=== PATIENT | male | born 1970 | race Caucasian/White ===

== ENCOUNTER 2018-02-24 20:29 | Inpatient (IN) | payer OTHER ==
[~2018-02-24] VITALS: Ht 182.9 cm; Wt 128.8 kg
[2018-02-24 20:58] VITALS: Ht 182.9 cm; Wt 128.8 kg
[2018-02-24 22:08] LABS: BASOPHIL % 0.4 % (0-2); PLATELET COUNT 204 x10^3mcL (130-400); RED CELL DISTRIBUTION WIDTH 13.7 % (11.5-14.5)
[2018-02-24 22:14] LABS: CALCIUM 8.8 mg/dL (8.5-10.1); CARBON DIOXIDE 26.6 mmol/L (21-32); CHLORIDE SERUM 99 mmol/L (98-107); CREATININE SERUM 1.2 mg/dL (0.7-1.3); GFR1 > 60 mL/min; GLUCOSE SERUM 109 mg/dL (74-106); POTASSIUM SERUM 3.2 mmol/L (3.5-5.1); SODIUM SERUM 138 mmol/L (136-145)
[2018-02-24 22:18] LABS: ALBUMIN 3.4 g/dL (3.4-5.0); ALKALINE PHOSPHATASE 58 U/L (46-116); ALT/SGPT 30 U/L (16-63); AST/SGOT 19 U/L (15-37); BILIRUBIN TOTAL 0.4 mg/dL (0.20-1.00); MAGNESIUM 2.1 mg/dL (1.8-2.4); TOTAL PROTEIN, SERUM 7.5 g/dL (6.4-8.2)
[2018-02-24] MEDS ORDERED: LOSARTAN POTASS50 M1 PO (22:54)
[2018-02-24] MEDS ORDERED: ATORVASTATIN CA40 M1 PO (22:55)
[2018-02-24] MEDS ORDERED: COREG25 M1 PO (22:55)
[2018-02-24] MEDS ORDERED: LASIX40 MG PO (22:55)
[2018-02-24] MEDS ORDERED: HYDRALAZINE HC100 MG PO (22:56)
[2018-02-24] MEDS ORDERED: ASPIR 8181 MG PO (22:56)
[2018-02-25] LABS: PHOSPHOROUS 2.9 mg/dL (2.5-4.9)
[2018-02-25 00:05] LABS: CHOLESTEROL/HDL RATIO 4.4
[2018-02-25 00:09] LABS: FREE T4 1.41 ng/dL (0.76-1.46); T4(THYROXINE) 11.5 ug/dL (4.7-13.3)
[2018-02-25 00:49] VITALS: BP 149/63
[2018-02-25 01:01] LABS: microscopic required? NO
[2018-02-25 01:11] LABS: T3 TOTAL 1.34 ng/mL
[2018-02-25 01:17] LABS: UA SPECIFIC GRAVITY <=1.005 (1.005-1.035); urine erythrocyte NEGATIVE (NEGATIVE)
[2018-02-25 01:34] LABS: AMPHETAMINE QUAL UR NONE DETECTED (See below)
[2018-02-25 01:47] VITALS: BP 139/66
[2018-02-25 04:58] VITALS: BP 116/53
[2018-02-25 06:45] LABS: BASOPHIL % 0.9 % (0-2); PLATELET COUNT 184 x10^3mcL (130-400); RED CELL DISTRIBUTION WIDTH 13.5 % (11.5-14.5)
[2018-02-25 07:04] LABS: CALCIUM 8.2 mg/dL (8.5-10.1); CARBON DIOXIDE 27.6 mmol/L (21-32); CHLORIDE SERUM 104 mmol/L (98-107); GFR1 > 60 mL/min; GLUCOSE SERUM 99 mg/dL (74-106); POTASSIUM SERUM 3.6 mmol/L (3.5-5.1); SODIUM SERUM 140 mmol/L (136-145)
[2018-02-25 09:02] VITALS: BP 136/61
[2018-02-25 17:10] VITALS: BP 142/70
[2018-02-25 21:33] VITALS: BP 106/67
[2018-02-26 05:48] VITALS: BP 132/61
[2018-02-26 06:40] LABS: BASOPHIL % 0.3 % (0-2); PLATELET COUNT 199 x10^3mcL (130-400); RED CELL DISTRIBUTION WIDTH 13.8 % (11.5-14.5)
[2018-02-26] MEDS ORDERED: KEFLEX500 M1 PO (06:47)
[2018-02-26] MEDS ORDERED: LAC PO (06:48)
[2018-02-26 07:12] LABS: CALCIUM 8.2 mg/dL (8.5-10.1); CARBON DIOXIDE 27.5 mmol/L (21-32); CHLORIDE SERUM 107 mmol/L (98-107); CREATININE SERUM 0.9 mg/dL (0.7-1.3); GFR1 > 60 mL/min; GLUCOSE SERUM 116 mg/dL (74-106); POTASSIUM SERUM 3.4 mmol/L (3.5-5.1); SODIUM SERUM 143 mmol/L (136-145)
[2018-02-26] MEDS ORDERED: BACTRIM DS1 TAB PO (08:14)
[2018-02-26 08:28] VITALS: BP 138/68
[2018-02-26 08:58] VITALS: BP 138/68
== END 2018-02-26 09:50 | disposition home or self-care (01) | DRG 602 ==
LOC: ED 20:29 → MU 22:52
PROVIDERS: Emergency Medicine; Family Medicine
DX: L03.115 Cellulitis of right lower limb (principal); N17.0 Acute kidney failure with tubular necrosis; E87.6 Hypokalemia; I10 Essential (primary) hypertension; E78.5 Hyperlipidemia, unspecified; Z79.82 Long term (current) use of aspirin; Z79.899 Other long term (current) drug therapy
CPT/HCPCS: 83880; 84439; 90658; J1644; J2543; J3370; J3490; J7030; Q0092

== ENCOUNTER 2018-03-02 21:11 | Emergency (ER) | payer OTHER ==
[~2018-03-02 21:11] MED LIST: ASPIR 8181 MG PO; ATORVASTATIN CA40 M1 PO; BACTRIM DS1 TAB PO; COREG25 M1 PO; HYDRALAZINE HC100 MG PO; KEFLEX500 M1 PO; LAC PO; LASIX40 MG PO; LOSARTAN POTASS50 M1 PO
[2018-03-02 23:47] LABS: BASOPHIL % 0.6 % (0-2); PLATELET COUNT 377 x10^3mcL (130-400); RED CELL DISTRIBUTION WIDTH 13.4 % (11.5-14.5)
[2018-03-03 01:25] LABS: CALCIUM 9.2 mg/dL (8.5-10.1); CARBON DIOXIDE 25.7 mmol/L (21-32); CHLORIDE SERUM 103 mmol/L (98-107); CREATININE SERUM 1.2 mg/dL (0.7-1.3); GFR1 > 60 mL/min; POTASSIUM SERUM 3.8 mmol/L (3.5-5.1); SODIUM SERUM 140 mmol/L (136-145)
[2018-03-03 01:28] LABS: ALBUMIN 3.2 g/dL (3.4-5.0)
[2018-03-03 01:34] LABS: GLUCOSE SERUM 102 mg/dL (74-106)
[2018-03-03 01:39] LABS: ALKALINE PHOSPHATASE 67 U/L (46-116); ALT/SGPT 31 U/L (16-63); AST/SGOT 18 U/L (15-37); BILIRUBIN TOTAL 0.3 mg/dL (0.20-1.00); C REACTIVE PROTEIN 1.1 mg/dL (<=0.9); TOTAL PROTEIN, SERUM 7.1 g/dL (6.4-8.2)
[2018-03-03 04:09] VITALS: BP 147/102
== END 2018-03-03 04:09 | disposition home or self-care (01) ==
LOC: ED 21:11
PROVIDERS: Emergency Medicine
DX: L03.115 Cellulitis of right lower limb (principal); I10 Essential (primary) hypertension
CPT/HCPCS: J0696; J3370; J7050; Q0092